=== PATIENT | female | born 1960 | race Caucasian/White ===

== ENCOUNTER 2019-06-03 13:42 | Emergency (ER) | payer OTHER, SELFPAY ==
--- NOTE | 2019-06-03 14:38 | DI.RAD.S_ITS ---
PROCEDURE: XR ANKLE RT MIN 3V INDICATIONS: injury TECHNIQUE: 3 views of the ankle were acquired. COMPARISON: None. FINDINGS: Bones: No fractures or dislocations. Ankle mortise is normally aligned. No suspicious bony lesions. Soft tissues: No tibiotalar joint effusion. Achilles tendon appears normal. IMPRESSION: Intact right ankle. Dictated by: Samia Gaming M.D. on 06/03/2019 at 15:43 Approved by: Samia Gaming M.D. on 06/03/2019 at 15:45
--- NOTE | 2019-06-03 14:38 | DI.RAD.S_ITS ---
PROCEDURE: XR FOOT RT MIN 3V INDICATIONS: injury TECHNIQUE: 3 views of the foot were acquired. COMPARISON: None. FINDINGS: Bones: No fractures or dislocations. No suspicious bony lesions. Soft tissues: No tibiotalar joint effusion. Achilles tendon appears normal. IMPRESSION: Intact right foot. Dictated by: Samia Gaming M.D. on 06/03/2019 at 15:45 Approved by: Samia Gaming M.D. on 06/03/2019 at 15:45
[2019-06-03 15:43] VITALS: BP 142/76; PULSE 78; RESP 12; TEMP 36.8; O2SAT 98
[2019-06-03] MEDS: CODEINE/ACETAMINOPHEN 30/300 TABLET 1 TAB PO (17:30)
--- NOTE | 2019-06-03 18:56 | ED.LOWEXIN ---
HPI - Extremity Injury (Lower) <DANA Weiner - Last Filed: 06/03/19 21:01> General Chief Complaint: Extremity Injury, Lower Stated Complaint: right foot pain Time Seen by Provider: 06/03/19 16:35 Source: patient Mode of arrival: ambulatory Limitations: no limitations History of Present Illness HPI Narrative: The patient is a 58-year-old female nonsmoker with history of Parkinson's who presents for chief complaint right foot pain. She states that she was running on the beach yesterday and developed pain to her right foot yesterday. She states she was barefoot. She did not fall, but thinks that she strained or sprained or fractured her foot. She states that the pain is at the ball of her foot. She has not taken anything for the pain. She is able to ambulate. She denies any fevers abdominal pain nausea vomiting or diarrhea. Related Data Previous Rx's Medication Instructions Recorded acetaminophen-codeine 1 tab PO Q4-6H PRN #7 tab 06/03/19 Allergies Allergy/AdvReac Type Severity Reaction Status Date / Time naproxen Allergy Verified 06/03/19 17:25 Review of Systems <DANA Weiner - Last Filed: 06/03/19 21:01> Review of Systems GENERAL: Denies chills, fatigue, malaise, fever, sweats. HEENT: Denies sinus pain, ear pain, sore throat, difficulty swallowing, dizziness. RESPIRATORY: Denies dyspnea, cough, wheezing, hemoptysis, sputum. CARDIOVASCULAR: Denies chest pain, palpitations, orthopnea, edema, GASTROINTESTINAL: Denies nausea, vomiting, abdominal pain, diarrhea, constipation, melena. : Denies dysuria, frequency, incontinence, hematuria, urinary retention. MUSCULOSKELETAL: See HPI SKIN: Denies rash, skin lesions, or other NEUROLOGIC: Denies weakness, headache, numbness, change in speech, confusion, seizures, incoordination. PSYCHIATRIC: No concerning psychosocial issues. 12 point review of systems is negative except for those stated above PFSH <DANA Weiner - Last Filed: 06/03/19 21:01> Medical History (Updated 06/03/19 @ 20:58 by DANA Weiner) Parkinsons disease (Acute) Exam <DANA Weiner - Last Filed: 06/03/19 21:01> Narrative Exam Narrative: GENERAL: This is a well-nourished, well-developed patient, in no acute distress HEAD: Atraumatic. Normocephalic. No temporal or scalp tenderness. EYES: Pupils equal round and reactive. Extraocular motions intact. No scleral icterus. No injection or drainage. ENT: Nose without bleeding, purulent drainage or septal hematoma. Throat without erythema, tonsillar hypertrophy or exudate. Uvula midline. Airway patent. NECK: Trachea midline. No JVD or lymphadenopathy. Supple, nontender, no meningeal signs. CARDIOVASCULAR: Regular rate and rhythm RESPIRATORY: No cough. No increased respiratory effort. No accessory muscle use. EXTREMITIES: Pain to palpation bottom of right foot, along the ball of foot. No visual abnormality. Positive pedal pulses. Capillary refill less than 2 seconds. Able to flex and extend toes. BACK: Nontender without deformity or crepitance. No flank tenderness. NEURO: AOx3. Tremor at baseline per patient SKIN: No erythema rash or ecchymosis noted on right foot. Initial Vital Signs Initial Vital Signs: Vital Signs Temperature 98.2 F 06/03/19 15:43 Pulse Rate 78 06/03/19 15:43 Respiratory Rate 12 06/03/19 15:43 Blood Pressure 142/76 H 06/03/19 15:43 Pulse Oximetry 98 06/03/19 15:43 <Sheryl Villalobos DO - Last Filed: 06/04/19 19:50> Initial Vital Signs Initial Vital Signs: Vital Signs Temperature 98.2 F 06/03/19 15:43 Pulse Rate 78 06/03/19 15:43 Respiratory Rate 12 06/03/19 15:43 Blood Pressure 142/76 H 06/03/19 15:43 Pulse Oximetry 98 06/03/19 15:43 Procedures <DANA Weiner - Last Filed: 06/03/19 21:01> Orthopedic Splinting/Casting Injury #1: Side: right Lower Extremity Immobilizer: post-op shoe Post splinting neuro exam: intact Post splinting vascular exam: intact Placed by: Nursing Course <DANA Weiner - Last Filed: 06/03/19 21:01> Orders Ordered: Discontinued Medications Acetaminophen/Codeine Phosphate (Tylenol #3) 1 tab PO NOW ONE Stop: 06/03/19 17:27 Last Admin: 06/03/19 17:30 Dose: 1 tab Ketorolac Tromethamine (Toradol) 30 mg IM NOW ONE Stop: 06/03/19 16:44 Last Admin: 06/03/19 17:30 Dose: Not Given Vital Signs - 8 hr 06/03/19 15:43 Temperature 98.2 F Pulse Rate 78 Respiratory Rate 12 Blood Pressure 142/76 H Pulse Oximetry 98 <Sheryl Villalobos DO - Last Filed: 06/04/19 19:50> Orders Ordered: Discontinued Medications Acetaminophen/Codeine Phosphate (Tylenol #3) 1 tab PO NOW ONE Stop: 06/03/19 17:27 Last Admin: 06/03/19 17:30 Dose: 1 tab Ketorolac Tromethamine (Toradol) 30 mg IM NOW ONE Stop: 06/03/19 16:44 Last Admin: 06/03/19 17:30 Dose: Not Given Vital Signs - 8 hr 06/03/19 15:43 Temperature 98.2 F Pulse Rate 78 Respiratory Rate 12 Blood Pressure 142/76 H Pulse Oximetry 98 MDM - Extremity Injury (Lower) <DANA Weiner - Last Filed: 06/03/19 21:01> Imaging Data Ankle x-ray: Radiologist's impression: [place] [address] XRay Report Signed Patient: Miroslava Squires EMR#: [id number] : 1Acct:[id number] Age/Sex: 58 / FDate of Service: 06/03/19 Loc: ED Accession Number: [id number] Procedure: XR ankle RT min 3V Ordering Provider: Sheryl Villalobos D.O. PROCEDURE: XR ANKLE RT MIN 3V INDICATIONS: injury TECHNIQUE: 3 views of the ankle were acquired. COMPARISON: None. FINDINGS: Bones: No fractures or dislocations. Ankle mortise is normally aligned. No suspicious bony lesions. Soft tissues: No tibiotalar joint effusion. Achilles tendon appears normal. IMPRESSION: Intact right ankle. Dictated by: Samia Gaming M.D. on 06/03/2019 at 15:43 Approved by: Samia Gaming M.D. on 06/03/2019 at 15:45 Foot x-ray: Radiologist's impression: Miroslava Squires 58 F [address] [address] XRay Report Signed Patient: Miroslava Squires EMR#: [id number] : 1960cct:[id number] Age/Sex: 58 / FDate of Service: 06/03/19 Loc: ED Accession Number: [id number] Procedure: XR foot RT min 3V Ordering Provider: Sheryl Villalobos D.O. PROCEDURE: XR FOOT RT MIN 3V INDICATIONS: injury TECHNIQUE: 3 views of the foot were acquired. COMPARISON: None. FINDINGS: Bones: No fractures or dislocations. No suspicious bony lesions. Soft tissues: No tibiotalar joint effusion. Achilles tendon appears normal. IMPRESSION: Intact right foot. Dictated by: Samia Gaming M.D. on 06/03/2019 at 15:45 Approved by: Samia Gaming M.D. on 06/03/2019 at 15:45 [facility] Narrative Medical decision making narrative: The patient is a 58-year-old female who presents with a chief complaint of foot pain. She has a negative x-ray. She was given a postop shoe. She stated this improved her pain. I gave her a small prescription of Tylenol 3. I discussed at length follow up with PCP given possibility of occult fracture etc. Otherwise she has no erythema or signs of infection. I believe this is likely a strain or sprain due to running barefoot on the beach. I discussed at length come back to the ER for any acute concerns such as chest pain, shortness of breath. Also encouraged rest ice compression elevation. Patient has no questions or concerns upon discharge. Discharge Plan Departure Patient Disposition: Home Clinical Impression: Acute foot pain Qualifiers: Laterality: right Qualified Code(s): M79.671 - Pain in right foot Discharge Date/Time: 06/03/19 17:45 Interventions: ED Discharge Assessment Last Done: 06/03/19 17:43 Instructions: How To Perform RICE (Rest, Ice, Compress, Elevate), DI for Foot Pain Activity Restrictions/Additional Instructions: Your x-rays came back with no fractures. Please follow up with primary care provider. I have given her prescription of Tylenol 3. This can be constipating and sedating. Please take a stool softener if needed, do not take and drive or combine it with any sedating agents such as alcohol. Please come back to the emergency department for any acute concerns such as chest pain or shortness of breath Prescriptions: New acetaminophen-codeine 300-30 mg tablet 1 tab PO Q4-6H PRN (Reason: pain) Qty: 7 RF: 0 <Sheryl Villalobos DO - Last Filed: 06/04/19 19:50> Cosign ED Attending Cosignature Attestation: I was immediately available in the department for consultation. This documentation has been reviewed and I agree with assessment and plan. Supervised by Sheryl Villalobos DO
--- NOTE | 2019-06-03 21:01 | ED_ITS ---
HPI - Extremity Injury (Lower) <DANA Weiner - Last Filed: 06/03/19 21:01> General Chief Complaint: Extremity Injury, Lower Stated Complaint: right foot pain Time Seen by Provider: 06/03/19 16:35 Source: patient Mode of arrival: ambulatory Limitations: no limitations History of Present Illness HPI Narrative: The patient is a 58-year-old female nonsmoker with history of Parkinson's who presents for chief complaint right foot pain. She states that she was running on the beach yesterday and developed pain to her right foot yesterday. She states she was barefoot. She did not fall, but thinks that she strained or sprained or fractured her foot. She states that the pain is at the ball of her foot. She has not taken anything for the pain. She is able to ambulate. She denies any fevers abdominal pain nausea vomiting or diarrhea. Related Data Previous Rx's Medication Instructions Recorded acetaminophen-codeine 1 tab PO Q4-6H PRN #7 tab 06/03/19 Allergies Allergy/AdvReac Type Severity Reaction Status Date / Time naproxen Allergy Verified 06/03/19 17:25 Review of Systems <DANA Weiner - Last Filed: 06/03/19 21:01> Review of Systems GENERAL: Denies chills, fatigue, malaise, fever, sweats. HEENT: Denies sinus pain, ear pain, sore throat, difficulty swallowing, dizziness. RESPIRATORY: Denies dyspnea, cough, wheezing, hemoptysis, sputum. CARDIOVASCULAR: Denies chest pain, palpitations, orthopnea, edema, GASTROINTESTINAL: Denies nausea, vomiting, abdominal pain, diarrhea, constipation, melena. : Denies dysuria, frequency, incontinence, hematuria, urinary retention. MUSCULOSKELETAL: See HPI SKIN: Denies rash, skin lesions, or other NEUROLOGIC: Denies weakness, headache, numbness, change in speech, confusion, seizures, incoordination. PSYCHIATRIC: No concerning psychosocial issues. 12 point review of systems is negative except for those stated above PFSH <DANA Weiner - Last Filed: 06/03/19 21:01> Medical History (Updated 06/03/19 @ 20:58 by DANA Weiner) Parkinsons disease (Acute) Exam <DANA Weiner - Last Filed: 06/03/19 21:01> Narrative Exam Narrative: GENERAL: This is a well-nourished, well-developed patient, in no acute distress HEAD: Atraumatic. Normocephalic. No temporal or scalp tenderness. EYES: Pupils equal round and reactive. Extraocular motions intact. No scleral icterus. No injection or drainage. ENT: Nose without bleeding, purulent drainage or septal hematoma. Throat without erythema, tonsillar hypertrophy or exudate. Uvula midline. Airway patent. NECK: Trachea midline. No JVD or lymphadenopathy. Supple, nontender, no meningeal signs. CARDIOVASCULAR: Regular rate and rhythm RESPIRATORY: No cough. No increased respiratory effort. No accessory muscle use. EXTREMITIES: Pain to palpation bottom of right foot, along the ball of foot. No visual abnormality. Positive pedal pulses. Capillary refill less than 2 seconds. Able to flex and extend toes. BACK: Nontender without deformity or crepitance. No flank tenderness. NEURO: AOx3. Tremor at baseline per patient SKIN: No erythema rash or ecchymosis noted on right foot. Initial Vital Signs Initial Vital Signs: Vital Signs Temperature 98.2 F 06/03/19 15:43 Pulse Rate 78 06/03/19 15:43 Respiratory Rate 12 06/03/19 15:43 Blood Pressure 142/76 H 06/03/19 15:43 Pulse Oximetry 98 06/03/19 15:43 <Sheryl Villalobos DO - Last Filed: 06/04/19 19:50> Initial Vital Signs Initial Vital Signs: Vital Signs Temperature 98.2 F 06/03/19 15:43 Pulse Rate 78 06/03/19 15:43 Respiratory Rate 12 06/03/19 15:43 Blood Pressure 142/76 H 06/03/19 15:43 Pulse Oximetry 98 06/03/19 15:43 Procedures <DANA Weiner - Last Filed: 06/03/19 21:01> Orthopedic Splinting/Casting Injury #1: Side: right Lower Extremity Immobilizer: post-op shoe Post splinting neuro exam: intact Post splinting vascular exam: intact Placed by: Nursing Course <DANA Weiner - Last Filed: 06/03/19 21:01> Orders Ordered: Discontinued Medications Acetaminophen/Codeine Phosphate (Tylenol #3) 1 tab PO NOW ONE Stop: 06/03/19 17:27 Last Admin: 06/03/19 17:30 Dose: 1 tab Ketorolac Tromethamine (Toradol) 30 mg IM NOW ONE Stop: 06/03/19 16:44 Last Admin: 06/03/19 17:30 Dose: Not Given Vital Signs - 8 hr 06/03/19 15:43 Temperature 98.2 F Pulse Rate 78 Respiratory Rate 12 Blood Pressure 142/76 H Pulse Oximetry 98 <Sheryl Villalobos DO - Last Filed: 06/04/19 19:50> Orders Ordered: Discontinued Medications Acetaminophen/Codeine Phosphate (Tylenol #3) 1 tab PO NOW ONE Stop: 06/03/19 17:27 Last Admin: 06/03/19 17:30 Dose: 1 tab Ketorolac Tromethamine (Toradol) 30 mg IM NOW ONE Stop: 06/03/19 16:44 Last Admin: 06/03/19 17:30 Dose: Not Given Vital Signs - 8 hr 06/03/19 15:43 Temperature 98.2 F Pulse Rate 78 Respiratory Rate 12 Blood Pressure 142/76 H Pulse Oximetry 98 MDM - Extremity Injury (Lower) <DANA Weiner - Last Filed: 06/03/19 21:01> Imaging Data Ankle x-ray: Radiologist's impression: [place] [address] XRay Report Signed Patient: Miroslava Squires EMR#: [id number] : 1Acct:[id number] Age/Sex: 58 / FDate of Service: 06/03/19 Loc: ED Accession Number: [id number] Procedure: XR ankle RT min 3V Ordering Provider: Sheryl Villalobos D.O. PROCEDURE: XR ANKLE RT MIN 3V INDICATIONS: injury TECHNIQUE: 3 views of the ankle were acquired. COMPARISON: None. FINDINGS: Bones: No fractures or dislocations. Ankle mortise is normally aligned. No suspicious bony lesions. Soft tissues: No tibiotalar joint effusion. Achilles tendon appears normal. IMPRESSION: Intact right ankle. Dictated by: Samia Gamnig M.D. on 06/03/2019 at 15:43 Approved by: Samia Gaming M.D. on 06/03/2019 at 15:45 Foot x-ray: Radiologist's impression: Miroslava Squires 58 F [address] [address] XRay Report Signed Patient: Miroslava Squires EMR#: [id number] : 1960cct:[id number] Age/Sex: 58 / FDate of Service: 06/03/19 Loc: ED Accession Number: [id number] Procedure: XR foot RT min 3V Ordering Provider: Sheryl Villalobos D.O. PROCEDURE: XR FOOT RT MIN 3V INDICATIONS: injury TECHNIQUE: 3 views of the foot were acquired. COMPARISON: None. FINDINGS: Bones: No fractures or dislocations. No suspicious bony lesions. Soft tissues: No tibiotalar joint effusion. Achilles tendon appears normal. IMPRESSION: Intact right foot. Dictated by: Samia Gaming M.D. on 06/03/2019 at 15:45 Approved by: Samia Gaming M.D. on 06/03/2019 at 15:45 [facility] Narrative Medical decision making narrative: The patient is a 58-year-old female who presents with a chief complaint of foot pain. She has a negative x-ray. She was given a postop shoe. She stated this improved her pain. I gave her a small prescription of Tylenol 3. I discussed at length follow up with PCP given possibility of occult fracture etc. Otherwise she has no erythema or signs of infection. I believe this is likely a strain or sprain due to running barefoot on the beach. I discussed at length come back to the ER for any acute concerns such as chest pain, shortness of breath. Also encouraged rest ice compression elevation. Patient has no questions or concerns upon discharge. Discharge Plan Departure Patient Disposition: Home Clinical Impression: Acute foot pain Qualifiers: Laterality: right Qualified Code(s): M79.671 - Pain in right foot Discharge Date/Time: 06/03/19 17:45 Interventions: ED Discharge Assessment Last Done: 06/03/19 17:43 Instructions: How To Perform RICE (Rest, Ice, Compress, Elevate), DI for Foot Pain Activity Restrictions/Additional Instructions: Your x-rays came back with no fractures. Please follow up with primary care provider. I have given her prescription of Tylenol 3. This can be constipating and sedating. Please take a stool softener if needed, do not take and drive or combine it with any sedating agents such as alcohol. Please come back to the emergency department for any acute concerns such as chest pain or shortness of breath Prescriptions: New acetaminophen-codeine 300-30 mg tablet 1 tab PO Q4-6H PRN (Reason: pain) Qty: 7 RF: 0 <Sheryl Villalobos DO - Last Filed: 06/04/19 19:50> Cosign ED Attending Cosignature Attestation: I was immediately available in the department for consultation. This documentation has been reviewed and I agree with assessment and plan. Supervised by Sheryl Villalobos DO
== END 2019-06-03 17:45 | disposition home or self-care (01) ==
PROVIDERS: Emergency Provider Nurse Practitioner Family
DX: M79.671 Pain in right foot (principal); Y93.02 Activity, running; Y92.832 Beach as the place of occurrence of the external cause
CPT/HCPCS: 29550; 73610; 73630; 99282; 99283